=== PATIENT | male | born 1985 | race Two or more races ===

== ENCOUNTER 2018-02-15 13:33 | Emergency (ER) | payer MEDICAID ==
[2018-02-15] MEDS ORDERED: NS 1,000 ML IV ONE (14:17)
[2018-02-15] MEDS ORDERED: DEXAMETHASONE 4 MG/ML VIAL IVP ONE (14:17)
[2018-02-15] MEDS ORDERED: METOCLOPRAMIDE 10 MG/2 ML VIAL IVP ONE (14:17)
[2018-02-15] MEDS ORDERED: HALOPERIDOL LACT 5 MG/ML INJ IVP ONE (14:17)
--- NOTE | 2018-02-15 14:17 | EDPHY ---
H & P Stated Complaint: h/a nausea x 1 week no trauma - Personal History Current Tetanus/Diphtheria Vaccine: No Current Tetanus Diphtheria and Acellular Pertussis (TDAP): No - Medical/Surgical History Hx Asthma: No Hx Chronic Respiratory Disease: No Hx Diabetes: No Hx Cardiac Disease: No Hx Renal Disease: No Hx Cirrhosis: No Hx Alcoholism: No Hx HIV/AIDS: No Hx Splenectomy or Spleen Trauma: No Other PMH: denies - Social History Smoking Status: Current every day smoker Time Seen by Provider: 02/15/18 14:08 HPI/ROS: CHIEF COMPLAINT: Left-sided headache times 30 min HISTORY OF PRESENT ILLNESS: 32-year-old male with history of chronic migraine, typically seen at [facility] however is in [place] for work, had his colleague drive him to the ER complaining of left-sided non thunderclap headache for the past 30 min while working in the sun on a hot day. Feels similar to his usual chronic headache with associated photophobia and nausea. No trauma. No history of head or neck manipulation or trauma. No peripheral paresthesia, weakness, numbness. No slurred speech. No gait instability. He has an upcoming appointment with a neurologist in [place], [place] on 2017 REVIEW OF SYSTEMS: A ten point review of systems was performed and is negative with the exception of the items mentioned in the HPI PAST MEDICAL & SURGICAL HISTORY: Chronic migraine SOCIAL HISTORY: No drug use PHYSICAL EXAM (Prior to examination, patient consented to physical exam, hands were washed and my usual and customary physical exam procedures followed) 1) GENERAL: Well-developed, well-nourished, alert and oriented. Appears uncomfortable sitting in a darkened room with sunglasses on. 2) HEAD: Normocephalic, atraumatic 3) HEENT: Pupils equal, round, reactive to light bilaterally. Sclera anicteric. Positive photophobia. No injection. Nasopharynx, oropharynx, clear , no lesions. Ears bilaterally with normal tympanic membranes. 4) NECK: Full range of motion, no meningeal signs. 5) LUNGS: Clear auscultation bilaterally, no wheezes, no rhonchi, no retractions. 6) HEART: Regular rate and rhythm, no murmur, no heave, no gallop. 7) ABDOMEN: No guarding, no rebound, no focal tenderness, 8) MUSCULOSKELETAL: Moving all extremities, no focal areas of tenderness, no obvious trauma. No peripheral edema or discoloration. 9) BACK: No obvious trauma, no visual or palpable abnormality. 10) SKIN: No rash, no petechiae. 11) Psychiatric: Patient is oriented X 3, there is no agitation. 12) NEURO: Awake, alert, and oriented to person, place and time. Answers questions appropriately. There were no obvious focal neurologic abnormalities. No cerebellar dysfunction. Cranial nerves 2 through to 12 intact. Normal steady gait. Upper and lower extremities bilaterally with strength 5 / 5, reflexes 2+. DIFFERENTIAL DIAGNOSIS: In no particular order, including but not limited to subarachnoid hemorrhage, migraine headache, tension headache and infectious causes such as meningitis, pharyngitis and sinusitis. The patient understands that this diagnosis is provisional and can never be 100% accurate. Usual and customary warnings were given concerning the clinical impression and all the patient's questions were answered. The patient was instructed to return to the emergency department should her symptoms worsen or return, or develop any new symptoms, otherwise to followup as directed in discharge instructions. This is a partial list of diagnoses considered. These considerations are based on history, physical exam, past history and reassessment. (Paul Barth) Constitutional: Initial Vital Signs Temperature (C) 37.0 C 02/15/18 13:36 Heart Rate 58 L 02/15/18 13:36 Respiratory Rate 20 02/15/18 13:36 Blood Pressure 114/66 02/15/18 13:36 O2 Sat (%) 99 02/15/18 13:36 O2 Delivery Mode Room Air Allergies/Adverse Reactions: No Known Allergies Allergy (Unverified 02/15/18 13:34) Home Medications: Medication Instructions Recorded NK [No Known Home Meds] 02/15/18 Medical Decision Making ED Course/Re-evaluation: 2:14 p.m.: Patient describes a typical migraine headache on the left side similar to his chronic migraine started approximately 30 min prior to arrival, non thunderclap. Nonfocal exam currently. I reviewed his medical records from [facility] dated [address] imaging at that time which is negative. At this time I do not think that repeat imaging is indicated. Doubt subarachnoid hemorrhage. I do not think that lumbar puncture is indicated. Will plan on supportive care, pain management with non opiates. He is agreeable with this plan. 3:25 p.m.: Re-evaluation with serial examinations most recently at this time after IV Haldol, Reglan, Decadron, normal saline. He is resting comfortably, states that his pain has decreased significantly. He requests further analgesia and then would like to be discharged. I have agreed to give the patient a dose of Toradol.. He remains with a nonfocal neurologic examination. At this time I think the patient can be discharged. He feels comfortable being discharged. Given usual and customary discharge precautions and instructions. I saw this patient independently based on established practice protocols. Care of patient under supervision of secondary supervising physician Dr Morris Engel. (LaryPaul) I did not see this patient while he was in the emergency department. However his care was discussed with the PA while patient was in the department. I agree with treatment plan and management (Morris Engel S) - Data Points Medications Given: Discontinued Medications Dexamethasone (Decadron Injection) 8 mg IVP EDNOW ONE Stop: 02/15/18 14:18 Last Admin: 02/15/18 14:43 Dose: 8 mg Haloperidol Lactate (Haldol Injection) 2.5 mg IVP EDNOW ONE Stop: 02/15/18 14:18 Last Admin: 02/15/18 14:42 Dose: 2.5 mg Sodium Chloride (Ns) 1,000 mls @ 0 mls/hr IV ONCE ONE PRN Reason: Wide Open Stop: 02/15/18 14:18 Last Admin: 02/15/18 14:42 Dose: 1,000 mls Ketorolac Tromethamine (Toradol) 15 mg IVP EDNOW ONE Stop: 02/15/18 15:25 Last Admin: 02/15/18 15:35 Dose: 15 mg Metoclopramide HCl (Reglan Injection) 10 mg IVP EDNOW ONE Stop: 02/15/18 14:18 Last Admin: 02/15/18 14:42 Dose: 10 mg Departure - Departure Disposition: Home, Routine, Self-Care Clinical Impression: Headache Qualifiers: Headache type: other headache syndrome Qualified Code(s): G44.89 - Other headache syndrome Condition: Good Instructions: Acute Headache (ED) Additional Instructions: RETURN TO THE ED IMMEDIATELY IF YOUR HEADACHE WORSENS, IF YOU DEVELOP A FEVER, NECK PAIN OR NECK STIFFNESS, OR IF YOU BECOME CONFUSED OR ABNORMALLY DROWSY. Referrals: Keep, your appointment with your neurologist next week [Other] - As per Instructions
[2018-02-15] MEDS ORDERED: KETOROLAC 15 MG/1 ML SDV IVP ONE (15:24)
[2018-02-15 16:13] VITALS: BP 121/75
== END 2018-02-15 16:12 | disposition home or self-care (01) ==
DX: G44.89 Other headache syndrome (principal); F17.200 Nicotine dependence, unspecified, uncomplicated
CPT/HCPCS: 96374; J1100; J1630; J1885; J2765